=== PATIENT | female | born 1980 | race Caucasian/White ===

== ENCOUNTER 2017-06-02 13:48 | Emergency (ER) | payer BC ==
[2017-06-02 14:13] LABS: #Eosinphils 0.2 thou/uL (0.0-0.7); #Lymphocytes 2.5 thou/uL (1.20-3.40); #Monocytes 0.5 thou/uL (0.11-0.59); #Neutrophils 5.5 thou/uL (1.40-6.50); %Basophils 0.4 % (0.0-1.0); %Eosinophils 2.6 % (0.0-10.0); %Monocytes 5.4 % (0.0-10.0); Hematocrit 41.5 % (36.0-47.0); Mean Platelet Volume 7.3 fL (7.4-10.4); Red Blood Cell (RBC) Count 4.77 mill/uL (4.20-5.40); White Blood Cell (WBC) Count 8.8 thou/uL (4.8-10.8)
[2017-06-02 14:34] LABS: Bilirubin Negative (Negative); Blood, Urine Negative (Negative); Glucose, Urine (Dipstick) Negative (Negative); Ketone, Urine Negative (Negative); Nitrite Negative (Negative); Protein, Urine (Dipstick) Negative (Neg-Trace); Urobilinogen 0.2 mg/dL (0.2-1.0)
[2017-06-02 14:34] LABS: ALT (SGPT) 12 U/L (8-55); AST (SGOT) 13 U/L (5-34); Alkaline Phosphatase 64 U/L (40-150); Anion Gap 13 mmol/L (10-20); BUN (Urea Nitrogen) 15 mg/dL (7.0-18.7); Bilirubin, Total 0.3 mg/dL (0.2-1.2); Calc. Creatinine Clearance 0 mL/min (70-130); Calcium 9.5 mg/dL (7.8-10.44); Carbon Dioxide 27 mmol/L (22-29); Chloride 103 mmol/L (98-107); Estimated GFR-MDRD 57; Globulin 3.4 g/dL (2.4-3.5); Lipase 83 U/L (8-78); Protein, Total 7.8 g/dL (6.0-8.3)
[2017-06-02] MEDS ORDERED: HYDROcodone/Acetaminophen 10/325 mg Tablet ONE (14:49)
[2017-06-02] MEDS ORDERED: Ondansetron ODT 4 MG TAB ONE (14:49)
--- NOTE | 2017-06-02 15:58 | ULT ---
PELVIC ULTRASOUND: History: Pain. Comparison: None. Technique: Transabdominal and endovaginal imaging of the pelvis is performed. Ovaries are interrogat ed with grayscale, color flow, doppler imaging and spectral waveform analysis. FINDINGS: Uterus is identified. There are no myometrial masses. Uterus is retroverted and measures 4.9 x 5.0 x 8.5 cm. Endometrium measures 0.3 cm. Echogenicity in the endometrium compatible with intrauterine d evice. Follicles in the left ovary. Large follicle measures 1.1 x 0.9 x 0.7 cm. Overall, left ovary measures 3.0 x 2.0 x 2.5 cm. Minimal follicles in the right ovary. Overall, right ovary measures 3.5 x 1.8 x 1.6 cm. No free fluid. DOPPLER: There is vascular flow to the left and right ovaries. IMPRESSION: Unremarkable pelvic ultrasound. POS: [facility]
== END 2017-06-02 16:02 | disposition home or self-care (01) ==
LOC: ERS 13:48
DX: R10.2 Pelvic and perineal pain (principal)
CPT/HCPCS: 36415; 76856; 80053; 81003; 81025; 83690; 85025; Q0162